=== PATIENT | female | born 1975 | race Caucasian/White ===

== ENCOUNTER 2018-10-16 21:49 | Emergency (ER) | payer SELFPAY ==
[~2018-10-16] VITALS: Ht 170.2 cm; Wt 63.5 kg
[2018-10-16 21:58] VITALS: BP 140/88; PULSE 98; RESP 20; Ht 170.2 cm; Wt 63.5 kg
== END 2018-10-16 23:45 | disposition left against medical advice (07) ==
LOC: FTE 21:49
DX: Z53.21 Procedure and treatment not carried out due to patient leaving prior to being seen by health care provider (principal)